=== PATIENT | male | born 1990 | race Caucasian/White ===

== ENCOUNTER 2019-12-24 09:35 | Emergency (ER) | payer OTHER, SELFPAY ==
--- NOTE | ~2019-12-24 | US_ITS ---
EXAMINATION: US scrotum doppler DATE: 12/24/2019 10:48 INDICATION: Testicular pain and urinary frequency TECHNIQUE: Testicular sonogram utilizing grayscale and Doppler COMPARISON: 01/31/2018 FINDINGS: The right testis measures 4.3 x 2.3 x 3.1 cm. The left testis measures 4.3 x 2.3 x 3.1 cm. There is normal vascular flow to both testes. The right epididymis is normal with normal vascular grant w. The left epididymis is normal with normal vascular flow. Small bilateral hydroceles are noted. IMPRESSION: 1. Small hydroceles. Reviewed, dictated and finalized at location [facility]. IMPRESSION: 1. Small hydroceles.
--- NOTE | ~2019-12-24 | CT_ITS ---
EXAMINATION: CT abdomen pelvis wo con DATE: 12/24/2019 11:47 INDICATION: Right flank pain, discomfort TECHNIQUE: Computed tomography (CT) of the abdomen and pelvis was performed without intravenous contr ast. Automated exposure control and iterative reconstruction technique were employed. Exam dose: 261 .45 mGy-cm total exam DLP. COMPARISON: 12/27/2018 CT abdomen pelvis FINDINGS: The lung bases are clear. Normal heart size. No pericardial or pleural effusion. The liver, gallbladder, bile ducts, spleen, pancreas, pancreatic duct and adrenal glands are unremark able. No urinary tract calculus or hydroureteronephrosis. No renal space occupying mass lesion. The urinary bladder, prostate gland and seminal vesicles are unremarkable. Normal appendix. No bowel obstruction, bowel wall thickening, pneumatosis or intraperitoneal free air . There are scattered diverticula of the sigmoid colon; no CT evidence of diverticulitis. Very small fat-containing umbilical hernia. Included skeletal structures are unremarkable. IMPRESSION: Diverticulosis of the sigmoid colon; no CT evidence of diverticulitis Reviewed, dictated and finalized at [facility]. Reviewed, dictated and finalized at location [facility]. IMPRESSION: Diverticulosis of the sigmoid colon; no CT evidence of diverticuli tis
--- NOTE | ~2019-12-24 | XR_ITS ---
EXAMINATION: XR abdomen/kub 1V INDICATION: Right flank pain TECHNIQUE: Supine views of the abdomen were obtained on 2 radiographs. COMPARISON: 09/02/2018 FINDINGS: The bowel gas pattern is normal. There are no dilated loops of bowel. No abnormal calcifica tions are identified. The visualized lung bases are clear. IMPRESSION: 1. No radiographic correlate for the patient's symptoms. Reviewed, dictated and finalized at location [facility].
[2019-12-24 09:40] VITALS: BP 133/98; PULSE 72; RESP 18; TEMP 36.1; O2SAT 100
--- NOTE | 2019-12-24 10:04 | ED.MALEGU ---
HPI - Male Genitourinary General Chief complaint: Urogenital-Male Stated complaint: rt flank pain, urinary symptoms Time Seen by Provider: 12/24/19 09:39 Source: patient Mode of arrival: ambulatory Limitations: no limitations History of Present Illness HPI Narrative: This patient is a 29 year old male with history of epididymitis who presents for evaluation of urinary frequency and right flank pain. He states starting 3 days ago he developed increased urinary frequency and testicular pain. He states his testicular pain is similar to when he had epididymitis 2 years ago. He reports his testicular pain has improved but starting yesterday he developed right flank pain. He denies associated nausea, vomiting, fever, chills, hematuria, dysuria or penile discharge. He has an appointment with Dr. Ferguson tomorrow. Severity scale (1-10): 5 Related Data Allergies Allergy/AdvReac Type Severity Reaction Status Date / Time No Known Allergies Allergy Unknown Verified 12/27/18 11:53 Review of Systems Review of Systems: All systems reviewed & are unremarkable except as noted in HPI and below Respiratory: Respiratory: Denies dyspnea Gastrointestinal: Gastrointestinal: Denies abdominal pain Genitourinary: Genitourinary: Denies hematuria, Reports genital pain, Reports flank pain, Reports testicular pain and Reports urinary frequency PMFSH Past Medical History Medical History (Updated 12/24/19 @ 12:23 by Olivia Carvajal MD) Epididymitis Surgical History Surgical History (Updated 12/24/19 @ 10:04 by Olivia Carvajal MD) No significant past surgical history Social History Social History (Updated 12/24/19 @ 10:05 by Olivia Carvajal MD) Smoking status: Never smoker Exam Const: General: cooperative, healthy appearing, well developed, alert, awake and Physically active Nutritional Appearance: average body habitus HENMT: Face and sinus: face symmetric Eyes: EOM: EOMs intact bilaterally Resp: Effort & Inspection: normal respiratory effort GI: GI Palp: Yes Soft to palpation, No Firmness to palpation present (GI), No Tenderness to palpation present (GI) and No No hepatosplenomegaly present : General: Yes no CVA tenderness Penis: Yes normal penis and Yes circumcised Meatus: meatus normal Scrotum: scrotum normal Testes: Testes normal Back/Spine/Pelvis: Back: no CVA tenderness Course Reevaluation(s) Reevaluation #1: I discussed wit patient that scrotal US and CT did not show any kidney stone or epididymitis. Date: 12/24/19 Time: 12:21 Vital Signs Vital signs: Vital Signs Temperature 97.0 F L 12/24/19 09:40 Pulse Rate 72 12/24/19 09:40 Respiratory Rate 18 12/24/19 09:40 Blood Pressure 133/98 H 12/24/19 09:40 Pulse Oximetry 100 12/24/19 09:40 Temperature 97.0 F L 12/24/19 09:40 Pulse Rate 81 12/24/19 12:33 Respiratory Rate 16 12/24/19 12:33 Blood Pressure 132/90 12/24/19 12:33 Pulse Oximetry 100 12/24/19 12:33 MDM - Male Genitourinary Lab Data Labs: Lab Results 12/24/19 Range/Units 10:04 Urine Color Yellow (Yellow) Urine Appearance Clear (Clear) Urine pH 6.0 (5.0-9.0) Ur Specific Crozier 1.017 (1.001-1.035) Urine Protein Negative (Negative) mg/dL Urine Glucose (UA) Negative (Negative) mg/dL Urine Ketones Negative (Negative) mg/dL Ur Blood (Man) 1+ H (Negative) Urine Nitrate Negative (Negative) Urine Bilirubin Negative (Negative) Urine Urobilinogen Negative (<2.0) mg/dL Leukocyte Esterase Rfl Negative (Negative) SERGIO/UL Urine RBC 3-5 H (0-2) /hpf Urine WBC 0-3 /hpf Urine Mucus Rare /lpf Imaging Data Radiologist's impression: ITS Impressions Scrotum Ultrasound 12/24/19 10:53 IMPRESSION: 1. Small hydroceles. Abdomen/Pelvis CT 12/24/19 11:53 IMPRESSION: Diverticulosis of the sigmoid colon; no CT evidence of diverticulitis Discharge Plan Discharge Clinica
[2019-12-24 10:16] LABS: Add Urine Microscopic? YES; Appearance Urine Clear (Clear); Bilirubin Urine Negative (Negative); Blood Urine 1+ (Negative); Color Urine Yellow (Yellow); Glucose Urine UA Negative (Negative); Ketones Urine Negative (Negative); Leukocyte Esterase Ur Negative LEU/UL (Negative); Mucus Urine Rare /lpf; Nitrate Urine Negative (Negative); Protein Urine Negative (Negative); Specific Grav Ur 1.017 (1.001-1.035); Urobilinogen Urine Negative mg/dL (<2.0); WBC Urine 0-3 /hpf
--- NOTE | 2019-12-24 10:21 | PC.NURSE ---
Patient to ultrasound at this time.
--- NOTE | 2019-12-24 11:10 | PC.NURSE ---
Oncoming RN introduced to patient and bedside report was given at same time.
[2019-12-24] MEDS: KETOROLAC (*BKC) 60 MG/2 ML VIAL IM (12:32)
[2019-12-24 12:33] VITALS: BP 132/90; PULSE 81; RESP 16; O2SAT 100
== END 2019-12-24 12:35 | disposition home or self-care (01) ==
PROVIDERS: Emergency Provider General Practice
DX: N50.812 Left testicular pain (principal); N50.811 Right testicular pain; N43.3 Hydrocele, unspecified; K57.30 Diverticulosis of large intestine without perforation or abscess without bleeding
CPT/HCPCS: 74018; 74176; 76870; 81001; 93976; 96372; 99284; J1885

== ENCOUNTER 2020-01-05 15:38 | Emergency (ER) | payer OTHER, SELFPAY ==
[2020-01-05 16:32] VITALS: BP 131/74; PULSE 82; RESP 18; TEMP 36.8; O2SAT 98
[2020-01-05 16:48] LABS: Basophils Percent Auto 0.5 % (0.2-1.2); Eosinophils Absolute Auto 0.1 K/mm3 (0-0.3); Eosinophils Percent Auto 0.9 % (0-4.4); Hematocrit 44.2 % (42.0-52.0); Hemoglobin 15.4 g/dL (14.0-18.0); Immature Granulocyte Absolute 0.03 K/mm3 (0.00-0.031); Immature Granulocyte Percent A 0.4 % (0-0.5); Lymphocytes Absolute Auto 2.15 K/mm3 (0.9-3.2); Lymphocytes Percent Auto 27.8 % (18.3-44.2); Mean Corpuscular HGB Conc 34.8 g/dl (32-36); Mean Corpuscular Hemoglobin 30.4 pg (26-34); Mean Corpuscular Volume 87.4 fl (80-100); Monocytes Absolute Auto 0.6 K/mm3 (0.1-0.6); Monocytes Percent Auto 7.3 % (2.6-8.5); Neutrophils Absolute Auto 4.9 K/mm3 (1.3-6.7); Neutrophils Percent Auto 63.1 % (45.5-73.1); Platelet Count Result 209 k/mm3 (150-375); Red Blood Count 5.06 M/mm3 (4.6-6.20); Red Cell Distribution Width 12.5 % (11.5-14.5); White Blood Count 7.7 K/mm3 (4.5-10.0)
[2020-01-05 16:59] LABS: Alanine Aminotransferase 28 U/L (4-50); Albumin Level 5.1 g/dL (3.5-5.1); Alkaline Phosphatase 66 U/L (38-126); Anion Gap 11 mmol/L (8-16); Aspartate Amino Transferase 24 U/L (17-59); Bilirubin,Total 0.5 mg/dL (0.2-1.3); Blood Urea Nitrogen 9 mg/dL (9-20); Calcium 9.6 mg/dL (8.4-10.2); Carbon Dioxide 26 mmol/L (22-30); Chloride 101 mmol/L (98-107); Estimated CRCL calculation 100 ml/min; Estimated Glomerular Filt Rate > 60; Glucose 100 mg/dL (75-110); Lipase 83 U/L (23-300); Potassium 3.8 mmol/L (3.4-5.0); Sodium 138 mmol/L (137-145)
--- NOTE | 2020-01-05 20:14 | ED.ABDPAIN ---
HPI - Abdominal Pain General Chief Complaint: Abdominal Pain Stated Complaint: abd pain Time Seen by Provider: 01/05/20 20:10 History of Present Illness HPI narrative: Pt c/o epigastric pain, 10/23, burning, non radiating, worse with food, feels bloated when he eats, started 3 days ago. Pt states he has a h/o reflux. Pt was seen here 2 weeks ago, had labs and ct scan done, were all normal. Denies n/v/d or fever. Related Data Allergies Allergy/AdvReac Type Severity Reaction Status Date / Time No Known Allergies Allergy Unknown Verified 01/05/20 20:19 Review of Systems Review of Systems: All systems reviewed & are unremarkable except as noted in HPI and below Constitutional: Constitutional: Denies body ache(s), Denies chills, Denies excessive sweating, Denies fatigue, Denies fever(s), Denies headache(s), Denies lethargy, Denies malaise, Denies weakness and Denies weight loss Eyes: Eyes: Denies blurry vision, Denies change in vision and Denies loss of vision ENT: Denies dizziness, Denies ear discharge, Denies headache(s), Denies lip swelling, Denies epistaxis, Denies nasal congestion, Denies neck pain, Denies throat swelling and Denies tongue swelling Cardiovascular: Cardiovascular: Denies chest pain, Denies chest pain at rest, Denies chest pain with activity, Denies diaphoresis, Denies rapid heart rate, Denies edema, Denies irregular heart rhythm, Denies lightheadedness, Denies palpitations, Denies dyspnea and Denies dyspnea on exertion Respiratory: Respiratory: Denies chest congestion, Denies cough, Denies hemoptysis, Denies dyspnea and Denies dyspnea on exertion Gastrointestinal: Gastrointestinal: Denies melena, Denies hematochezia, Denies diarrhea, Denies nausea, Denies vomiting and Denies hematemesis Musculoskeletal: Musculoskeletal: Denies abnormal gait, Denies deformity, Denies joint swelling, Denies limited range of motion, Denies neck pain and Denies numbness Neurologic: Denies Abnormal speech present, Denies abnormal gait, Denies confusion, Denies dizziness, Denies headache(s), Denies focal weakness, Denies loss of vision, Denies numbness, Denies Other visual disturbances, Denies Sensory deficit (Neuro) and Denies weakness Psychiatric: Psychiatric: Denies confusion, Denies depression, Denies auditory hallucinations, Denies homicidal ideation and Denies suicidal ideation Endocrine: Endocrine: Denies cold intolerance, Denies excessive sweating, Denies fatigue, Denies heat intolerance and Denies palpitations Hematologic/Lymphatic: Hematologic/Lymphatic: Denies easy bleeding and Denies easy bruising Allergic/Immunologic: Allergic/Immunologic: Denies lip swelling, Denies throat swelling and Denies tongue swelling PMFSH Past Medical History Medical History (Updated 01/05/20 @ 21:55 by Wai Bashir MD) Epididymitis Surgical History Surgical History (Updated 12/24/19 @ 10:04 by Olivia Carvajal MD) No significant past surgical history Social History Social History (Updated 12/24/19 @ 10:05 by Olivia Carvajal MD) Smoking status: Never smoker Gender identity (if verbalized by the patient): Male Exam Const: General: cooperative, healthy appearing, comfortable, no acute distress, well developed, alert and awake; No confusion Orientation/consciousness: oriented to person, oriented to place, oriented to time, patient oriented x3 and No confusion Limitations: no limitations HENMT: Head: normal to inspection, normocephalic and atraumatic Ears: hearing grossly normal bilaterally, TM normal on the right and TM normal on the left General nose exam: Normal external nose present, Normal nares present and No nasal discharge present Face and sinus: normal facial exam Mouth: Yes Normal oral and palatal mucosa present, Yes lip normal, Yes tongue normal and Yes oropharynx normal Throat: posterior oropharynx normal, tonsils normal and uvula midline Eyes: General: appearance normal, both eyes and all related structure
[2020-01-05] MEDS: BELLADONNA ALK/PHENOB ELIX 10 ML, MAG HYDROX/ALUMINUM HYD/SIMETH 30 ML, LIDOCAINE HCL 2... PO (20:32)
[2020-01-05] MEDS: FAMOTIDINE 20 MG TABLET PO (20:32)
[2020-01-05 22:07] VITALS: BP 119/73; PULSE 55; RESP 18; O2SAT 99
== END 2020-01-05 22:08 | disposition home or self-care (01) ==
PROVIDERS: Emergency Medicine; Emergency Provider Emergency Medicine; Referring Provider Family Medicine
DX: K29.00 Acute gastritis without bleeding (principal)
CPT/HCPCS: 36415; 80053; 83690; 85025; 99283; A9270

== ENCOUNTER 2020-12-07 17:58 | Emergency (ER) | payer OTHER, SELFPAY ==
--- NOTE | ~2020-12-07 | CT_ITS ---
EXAMINATION: CT abdomen pelvis w con DATE: 12/07/2020 22:46 INDICATION: Abdominal pain, hematochezia TECHNIQUE: Computed tomography (CT) of the abdomen and pelvis was performed with 100 cc Omnipaque 350 intravenous contrast. Automated exposure control and iterative reconstruction technique were employe d. Exam dose: 515.59 mGy-cm total exam DLP. COMPARISON: 12/24/[address] abdomen pelvis FINDINGS: The lung bases are clear. Normal heart size. No pericardial or pleural effusion. The liver, gallbladder, bile ducts, spleen, pancreas, pancreatic duct, and adrenal glands are unremar kable. 8.5 mm upper pole left renal cyst. No urinary tract calculus or hydroureteronephrosis. Normal caliber of the abdominal aorta. No intraperitoneal or retroperitoneal or pelvic mass lesion or ascites. The appendix measures up to 8.3 mm diameter compared to 7 mm on 01/03/2020. There is some thickening o f the wall of the mid appendix, but there is air within the distal appendiceal lumen. There is minima l periappendiceal fat stranding. Recommend clinical correlation for early appendicitis. There is some shoddy right lower quadrant lymph nodes, also present on 01/03/2020. There is mild epiploic appendagitis involving the distal descending colon. No bowel obstruction or intraperitoneal free air. Small fat-containing umbilical hernia. No suspicious osteolytic or osteoblastic lesions. IMPRESSION: 8.5 mm left renal cyst Equivocal findings of the appendix; recommend clinical correlation Chronic right lower quadrant shotty mesenteric lymph nodes, measuring up to 7.8 x 12.8 mm Reviewed, dictated and finalized at [facility]. Reviewed, dictated and finalized at location [facility].
[2020-12-07 18:04] VITALS: BP 165/81; PULSE 80; RESP 18; TEMP 37; O2SAT 98
[2020-12-07 19:09] LABS: Basophils Percent Auto 0.3 % (0.2-1.2); Eosinophils Percent Auto 0.4 % (0-4.4); Hemoglobin 15.1 g/dL (14.0-18.0); Immature Granulocyte Absolute 0.05 K/mm3 (0.00-0.031); Immature Granulocyte Percent A 0.5 % (0-0.5); Lymphocytes Absolute Auto 1.43 K/mm3 (0.9-3.2); Lymphocytes Percent Auto 13.4 % (18.3-44.2); Mean Corpuscular HGB Conc 33.6 g/dl (32-36); Mean Corpuscular Hemoglobin 30.6 pg (26-34); Mean Corpuscular Volume 91.1 fl (80-100); Mean Platelet Volume 9.9 fl (7.4-10.4); Monocytes Absolute Auto 0.6 K/mm3 (0.1-0.6); Monocytes Percent Auto 5.3 % (2.6-8.5); Neutrophils Absolute Auto 8.6 K/mm3 (1.3-6.7); Neutrophils Percent Auto 80.1 % (45.5-73.1); Platelet Count Result 205 k/mm3 (150-375); Red Blood Count 4.94 M/mm3 (4.6-6.20); Red Cell Distribution Width 12.6 % (11.5-14.5); White Blood Count 10.7 K/mm3 (4.5-10.0)
[2020-12-07 19:18] LABS: Add Urine Microscopic? NO; Appearance Urine Clear (Clear); Bilirubin Urine Negative (Negative); Blood Urine Negative (Negative); Color Urine Yellow (Yellow); Glucose Urine UA Negative (Negative); Ketones Urine Negative (Negative); Leukocyte Esterase Ur Negative LEU/UL (Negative); Nitrate Urine Negative (Negative); Protein Urine Negative (Negative); Urobilinogen Urine 0.2 mg/dL (<2.0); pH Urine 5.5 (5.0-9.0)
[2020-12-07 19:19] LABS: Alanine Aminotransferase 29 U/L (4-50); Albumin Level 5.2 g/dL (3.5-5.1); Alkaline Phosphatase 78 U/L (38-126); Anion Gap 10 mmol/L (8-16); Aspartate Amino Transferase 28 U/L (17-59); Bilirubin,Total 0.4 mg/dL (0.2-1.3); Blood Urea Nitrogen 12 mg/dL (9-20); Calcium 9.7 mg/dL (8.4-10.2); Carbon Dioxide 26 mmol/L (22-30); Chloride 104 mmol/L (98-107); Estimated CRCL calculation 111 ml/min; Estimated Glomerular Filt Rate > 60; Glucose 103 mg/dL (65-110); Lipase 95 U/L (23-300); Potassium 3.9 mmol/L (3.4-5.0); Sodium 140 mmol/L (137-145)
[2020-12-07 20:53] VITALS: BP 143/91; PULSE 75; RESP 16; O2SAT 99
--- NOTE | 2020-12-07 22:03 | ED.ABDPAIN ---
HPI - Abdominal Pain General Chief Complaint: Abdominal Pain Stated Complaint: Abd Pain,Blood in stool Time Seen by Provider: 12/07/20 21:05 Source: patient Mode of arrival: ambulatory Limitations: no limitations History of Present Illness HPI narrative: Patient is a 30-year-old male complaining of epigastric pain, dull, 3 out of 10, nonradiating that started today. Patient states that he noticed blood in his stools today especially when he wiped, had 2 episodes and none since. Patient denies any rectal pain or history of hemorrhoids. Patient denies any similar episodes in the past. Patient denies any chest pain, shortness of breath, nausea, vomiting, diarrhea, fever or chills. Related Data Allergies Allergy/AdvReac Type Severity Reaction Status Date / Time No Known Allergies Allergy Unknown Verified 12/07/20 20:49 Review of Systems Review of Systems: All systems reviewed & are unremarkable except as noted in HPI and below Constitutional: Constitutional: Denies body ache(s), Denies chills, Denies excessive sweating, Denies fatigue, Denies fever(s), Denies headache(s), Denies lethargy, Denies malaise, Denies weakness and Denies weight loss Eyes: Eyes: Denies blurry vision, Denies change in vision and Denies loss of vision ENT: Denies dizziness, Denies ear discharge, Denies headache(s), Denies lip swelling, Denies epistaxis, Denies nasal congestion, Denies neck pain, Denies throat swelling and Denies tongue swelling Cardiovascular: Cardiovascular: Denies chest pain, Denies chest pain at rest, Denies chest pain with activity, Denies diaphoresis, Denies rapid heart rate, Denies edema, Denies irregular heart rhythm, Denies lightheadedness, Denies palpitations, Denies dyspnea and Denies dyspnea on exertion Respiratory: Respiratory: Denies chest congestion, Denies cough, Denies hemoptysis, Denies dyspnea and Denies dyspnea on exertion Gastrointestinal: Gastrointestinal: Denies melena, Denies diarrhea, Denies nausea, Denies vomiting and Denies hematemesis Musculoskeletal: Musculoskeletal: Denies abnormal gait, Denies deformity, Denies joint swelling, Denies limited range of motion, Denies neck pain and Denies numbness Neurologic: Denies Abnormal speech present, Denies abnormal gait, Denies confusion, Denies dizziness, Denies headache(s), Denies focal weakness, Denies loss of vision, Denies numbness, Denies Other visual disturbances, Denies Sensory deficit (Neuro) and Denies weakness Psychiatric: Psychiatric: Denies confusion, Denies depression, Denies auditory hallucinations, Denies homicidal ideation and Denies suicidal ideation Endocrine: Endocrine: Denies cold intolerance, Denies excessive sweating, Denies fatigue, Denies heat intolerance and Denies palpitations Hematologic/Lymphatic: Hematologic/Lymphatic: Denies easy bleeding and Denies easy bruising Allergic/Immunologic: Allergic/Immunologic: Denies lip swelling, Denies throat swelling and Denies tongue swelling PMFSH Past Medical History Medical History (Updated 12/08/20 @ 00:14 by Wai Bashir MD) Epididymitis Surgical History Surgical History (Updated 12/24/19 @ 10:04 by Olivia Carvajal MD) No significant past surgical history Social History Social History (Updated 12/24/19 @ 10:05 by Olivia Carvajal MD) Smoking status: Never smoker Gender identity (if verbalized by the patient): Male Comments Past medical history: None Family history: Noncontributory Social history: Non-smoker no EtOH or drug use Exam Const: General: cooperative, healthy appearing, comfortable, no acute distress, well developed, alert and awake; No confusion Orientation/consciousness: oriented to person, oriented to place, oriented to time, patient oriented x3 and No confusion Limitations: no limitations HENMT: Head: normal to inspection, normocephalic and atraumatic Ears: hearing grossly normal bilaterally, TM normal on the right and TM normal on the left General nose exam:
[2020-12-07] MEDS: KETOROLAC 30 MG/ML VIAL (*BKC) IV PUSH (22:17)
[2020-12-07] MEDS: LACTATED RINGERS 1,000 ML 999 ML IV CONT (22:20)
[2020-12-07 22:21] VITALS: BP 145/82; PULSE 62; RESP 14; O2SAT 98
[2020-12-07 23:19] VITALS: BP 122/72; PULSE 85; RESP 14; O2SAT 98
[2020-12-08 00:43] VITALS: BP 127/85; PULSE 58; RESP 14; O2SAT 98
== END 2020-12-08 00:25 | disposition home or self-care (01) ==
PROVIDERS: Emergency Medicine; Emergency Provider Emergency Medicine
DX: K62.5 Hemorrhage of anus and rectum (principal); R10.13 Epigastric pain
CPT/HCPCS: 36415; 74177; 80053; 81003; 83690; 85025; 96361; 96374; 99284; J1885; J7120; Q9967

== ENCOUNTER 2021-07-13 15:57 | Emergency (ER) | payer OTHER, SELFPAY ==
[2021-07-13 15:59] VITALS: BP 119/96; PULSE 89; RESP 18; TEMP 37.1; O2SAT 100
--- NOTE | 2021-07-13 16:25 | ED.URI ---
HPI - URI/Sore Throat General Chief Complaint: Upper Respiratory Infection Stated Complaint: Cough, chills, shortness of breath Time Seen by Provider: 07/13/21 16:07 History of Present Illness HPI Narrative: Patient is a 30 year old male with no past medical history who presents for evaluation of nasal congestion, productive cough, subjective fevers. Was seen at urgent care 2 days ago for the same, returns today due to increased productive cough. +exposure to influenza A 5 days ago. Has been vaccinated against COVID, took home test yesterday that was negative. Related Data Home Medications Medication Instructions Recorded Confirmed sertraline [Zoloft] 50 mg PO DAILY 07/13/21 07/13/21 Allergies Allergy/AdvReac Type Severity Reaction Status Date / Time No Known Allergies Allergy Unknown Verified 07/13/21 16:06 Review of Systems Review of Systems: All systems reviewed & are unremarkable except as noted in HPI and below PMFSH Past Medical History Medical History (Updated 07/13/21 @ 18:14 by Su Benito PA-C) Epididymitis Surgical History Surgical History (Updated 12/24/19 @ 10:04 by Olivia Carvajal MD) No significant past surgical history Social History Social History (Updated 12/24/19 @ 10:05 by Olivia Carvajal MD) Smoking status: Never smoker Gender identity (if verbalized by the patient): Male Exam Const: General: no acute distress; No ill appearing Orientation/consciousness: patient oriented x3 HENMT: Head: normal to inspection General nose exam: Nasal discharge present Face and sinus: no sinus tenderness Other: Mild erythema noted to posterior oropharynx, but no exudates or tonsillar swelling. Neck: Neck: no lymphadenopathy and no meningeal signs Resp: Effort & Inspection: normal respiratory effort and not labored Auscultation: clear to auscultation bilaterally, no crackles, no rales, no rhonchi, no wheezes and lung sounds not diminished Cardio: Rate: regular rate Rhythm: regular rhythm Heart sounds: no murmurs GI: GI Palp: Yes Soft to palpation, No Tenderness to palpation present (GI) and No Rebound tenderness present Neuro: General: patient oriented x3 and moves all extremities Extrem: General: normal to inspection and no edema Psych: Appearance: grossly normal Mental Status: mental status grossly normal Affect: normal affect Course Vital Signs Vital signs: Vital Signs Temperature 98.7 F 07/13/21 15:59 Pulse Rate 89 07/13/21 15:59 Respiratory Rate 18 07/13/21 15:59 Blood Pressure 119/96 H 07/13/21 15:59 Pulse Oximetry 100 07/13/21 15:59 Temperature 98.7 F 07/13/21 15:59 Pulse Rate 89 07/13/21 15:59 Respiratory Rate 18 07/13/21 15:59 Blood Pressure 119/96 H 07/13/21 15:59 Pulse Oximetry 100 07/13/21 15:59 MDM - URI/Sore Throat MDM Narrative Medical decision making narrative: Healthy 30 year old male here for evaluation of subjective fevers, cough, sore throat, and runny nose. Patient had exposure to influenza A over the weekend. Patient appears clinically well, has normal vital signs with clear lungs to auscultation. Do not feel that lab studies or imaging is indicated at this time. Centor score 0. Will swab for flu, covid and have patient follow up with primary care doctor if not better. Encouraged fluids and rest. Influenza A positive- will send for script for Sudafed and encourage fluids and rest. Return precautions discussed. Medical Records Attestation: I reviewed the patient's medical records. Lab Data Labs: Lab Results 07/13/21 Range/Units 17:25 Influenza A (RT-PCR) Positive (Negative) Influenza B (RT-PCR) Negative (Negative) SARS-CoV-2 RNA (RT-PCR) Negative Discharge Plan Discharge Clinical Impression: Influenza Patient Disposition: Home, Self-Care Condition: Stable Instructions: Antibiotic Form, Influenza (ED) Additional Instructions: You were diagnosed with the flu tod
[2021-07-13 18:07] LABS: Influenza A QL RT-PCR Positive (Negative); Influenza B QL RT-PCR Negative (Negative); SARS-CoV-2 RNA PCR Negative
[2021-07-13] MEDS: IBUPROFEN 400 MG TABLET 800 MG PO (18:17)
== END 2021-07-13 18:27 | disposition home or self-care (01) ==
PROVIDERS: Physician Assistant; Emergency Provider Emergency Medicine; PCP Nurse Practitioner Family
DX: J11.1 Influenza due to unidentified influenza virus with other respiratory manifestations (principal)
CPT/HCPCS: 87502; 99283; A9270; C9803; U0003; U0005

== ENCOUNTER 2022-05-16 11:12 | Emergency (ER) | payer OTHER, SELFPAY ==
--- NOTE | ~2022-05-16 | US_ITS ---
EXAMINATION: US scrotum doppler DATE: 05/16/2022 12:07 INDICATION: Left scrotal pain. TECHNIQUE: Grayscale and Doppler ultrasound images of the testes were obtained. COMPARISON: Ultrasound 12/25/2019 FINDINGS: The right testis measures 4.7 x 2.5 x 3.3 cm. The left testis measures 4.3 x 2.5 x 3.5 cm. There is normal vascular flow to both testes. The right epididymis is normal with normal vascular grant w. The left epididymis is normal with normal vascular flow. There is no varicocele or hydrocele. IMPRESSION: 1. Normal testes. Reviewed, dictated and finalized at location A. EN MAKING TECHNICIAN IMPRESSION: 1. Normal testes.
--- NOTE | ~2022-05-16 | CT_ITS ---
EXAMINATION: CT abdomen pelvis w con DATE: 05/16/2022 14:39 INDICATION: Left inguinal pain. TECHNIQUE: Computed tomography (CT) of the abdomen and pelvis was performed with 100 mL Omnipaque 350 intravenous contrast. Automated exposure control and iterative reconstruction technique were employe d. The dose-length product was 377.62 mGy-cm. COMPARISON: CT abdomen and pelvis 12/07/2020 FINDINGS: The visualized portions of the lung bases are clear without pneumonia or pleural effusion. The heart size is normal. No pericardial effusion. The liver, gallbladder, spleen, pancreas, adrenal glands, and right kidney are normal. There is a 10 mm cyst in left kidney. There are no dilated loops of bowel. The appendix measures 10 mm in diameter without change. There are no pathologically enlarg ed lymph nodes. There is no free intraperitoneal fluid. There is mild thoracolumbar spondylosis. Ther e is mild chronic anterior wedging of T12 vertebral body. IMPRESSION: 1. No etiology for left inguinal pain. Reviewed, dictated and finalized at location A. ACT LENS FLASHING PUNCHER
[2022-05-16 11:16] VITALS: BP 143/71; PULSE 92; RESP 16; TEMP 37.1; O2SAT 100
[2022-05-16 12:06] LABS: Appearance Urine Clear (Clear); Bilirubin Urine Negative (Negative); Blood Urine Negative (Negative); Color Urine Yellow (Yellow); Glucose Urine UA Negative (Negative); Ketones Urine Negative (Negative); Leukocyte Esterase Ur Negative LEU/UL (Negative); Nitrate Urine Negative (Negative); Protein Urine Negative (Negative); Specific Grav Ur 1.015 (1.001-1.035); Urobilinogen Urine 0.2 mg/dL (<2.0)
[2022-05-16 12:21] LABS: Add Urine Microscopic? NO
--- NOTE | 2022-05-16 12:23 | ED.MALEGU ---
HPI - Male Genitourinary General Chief complaint: Urogenital-Male Stated complaint: back pain, groin pain Time Seen by Provider: 05/16/22 11:28 History of Present Illness HPI Narrative: Patient is a 31-year-old male with a history of epididymitis, prostatitis, previous UTIs here for evaluation of pain in his left inguinal region for the past several days. Patient states the pain is described as a dull ache, and he actually feels a mass in that area. Has not attempted any medicine for his pain. No dysuria, urgency, frequency, fevers, chills, nausea or vomiting. He had 1 day of right flank pain that has since eased up. Related Data Home Medications Medication Instructions Recorded Confirmed sertraline 50 mg tablet (Zoloft) 50 mg PO DAILY 07/13/21 07/13/21 Allergies Allergy/AdvReac Type Severity Reaction Status Date / Time No Known Allergies Allergy Unknown Verified 07/13/21 16:06 Review of Systems Review of Systems: Gen.: Denies fevers or chills Eyes: Denies eye pain or visual change ENT: Denies congestion Respiratory: Denies shortness of breath or cough CV: Denies chest pain or palpitations GI: Denies abdominal pain nausea, emesis or diarrhea : reports pain in left inguinal region. Denies burning, urgency, frequency or hematuria Musculoskeletal: Denies back pain or muscle pain Neuro: Denies numbness, tingling, weakness or focal weakness Skin: Denies rash Except as documented, all other systems reviewed and negative PMFSH Past Medical History Medical History Epididymitis Surgical History Surgical History No significant past surgical history Social History Social History (Updated 12/24/19 @ 10:05 by Olivia Carvajal MD) Smoking status: Never smoker Gender identity (if verbalized by the patient): Male Exam Narrative: APPEARANCE: Well appearing, no pain in distress, well-nourished. Head: Normocephalic and atraumatic. EYES: PERRLA/EOMI, conjunctivae clear NOSE: No nasal drainage EARS: External ear normal in appearance THROAT: Oropharynx is clear. Mucous membranes are moist. NECK: Supple. No adenopathy, no masses. RESPIRATORY: Airway patent, respirations nonlabored. Clear to auscultation bilaterally, no rales, rhonchi, wheezing. CARDIOVASCULAR: Regular rate and rhythm without murmurs, rubs, or gallops. ABDOMINAL: No abnormalities palpated in the patient's area of pain. Normoactive bowel sounds. Soft, nontender, nondistended. No rebound tenderness or guarding. : No pain with rectal exam. Testicles are normal in appearance. No rashes noted. MUSCULOSKELETAL: Extremities are warm and well-perfused. Moves all extremities well. No edema. NEURO: Normal speech. No focal neurologic deficits. SKIN: Skin is warm and dry. No rashes. PSYCHIATRIC: Normal affect/mood. Course Vital Signs Vital signs: Vital Signs Temperature 98.8 F 05/16/22 11:16 Pulse Rate 92 05/16/22 11:16 Respiratory Rate 16 05/16/22 11:16 Blood Pressure 143/71 H 05/16/22 11:16 Pulse Oximetry 100 05/16/22 11:16 Oxygen Delivery Room Air 05/16/22 11:16 Temperature 98.8 F 05/16/22 11:16 Pulse Rate 92 05/16/22 11:16 Respiratory Rate 16 05/16/22 11:16 Blood Pressure 143/71 H 05/16/22 11:16 Pulse Oximetry 100 05/16/22 11:16 Oxygen Delivery Room Air 05/16/22 11:16 MDM - Male Genitourinary MDM Narrative Medical decision making narrative: Patient is a 31-year-old male here for evaluation of pain in his left inguinal region and an episode of right flank pain yesterday. Patient is nontoxic in appearance and has normal vital signs. There is no hernia or mass palpated on exam. Testicles are normal in appearance, no pain with rectal exam to suggest prostatitis. His urinalysis and basic labs are unremarkable. Scrotal ultrasound obtained in triage is negative. CT abdomen pelv
[2022-05-16 13:27] LABS: Basophils Absolute Auto 0.1 K/mm3 (0.0-0.1); Basophils Percent Auto 0.7 % (0.2-1.2); Eosinophils Absolute Auto 0.1 K/mm3 (0-0.3); Eosinophils Percent Auto 1.2 % (0-4.4); Hematocrit 44.8 % (42.0-52.0); Hemoglobin 15.3 g/dL (14.0-18.0); Immature Granulocyte Absolute 0.02 K/mm3 (0.00-0.031); Immature Granulocyte Percent A 0.3 % (0-0.5); Lymphocytes Absolute Auto 1.58 K/mm3 (0.9-3.2); Lymphocytes Percent Auto 23.2 % (18.3-44.2); Mean Corpuscular HGB Conc 34.2 g/dl (32-36); Mean Corpuscular Hemoglobin 30.5 pg (26-34); Mean Corpuscular Volume 89.2 fl (80-100); Mean Platelet Volume 9.6 fl (7.4-10.4); Monocytes Absolute Auto 0.5 K/mm3 (0.1-0.6); Monocytes Percent Auto 7.5 % (2.6-8.5); Neutrophils Absolute Auto 4.6 K/mm3 (1.3-6.7); Neutrophils Percent Auto 67.1 % (45.5-73.1); Platelet Count Result 187 k/mm3 (150-375); Red Blood Count 5.02 M/mm3 (4.6-6.20); White Blood Count 6.8 K/mm3 (4.5-10.0)
[2022-05-16 13:40] LABS: Alanine Aminotransferase 21 U/L (6-50); Albumin Level 4.7 g/dL (3.5-5.1); Alkaline Phosphatase 57 U/L (38-126); Anion Gap 7 mmol/L (8-16); Aspartate Amino Transferase 23 U/L (17-59); Bilirubin,Total 0.4 mg/dL (0.2-1.3); Blood Urea Nitrogen 11 mg/dL (9-20); Calcium 9.5 mg/dL (8.4-10.2); Carbon Dioxide 30 mmol/L (22-30); Chloride 101 mmol/L (98-107); Estimated CRCL calculation 124 ml/min; Estimated Glomerular Filt Rate > 60; Glucose 97 mg/dL (65-110); Potassium 4.6 mmol/L (3.4-5.0); Sodium 138 mmol/L (137-145)
== END 2022-05-16 15:29 | disposition home or self-care (01) ==
PROVIDERS: Emergency Provider Physician Assistant; PCP Nurse Practitioner Family
DX: R10.32 Left lower quadrant pain (principal); Z87.440 Personal history of urinary (tract) infections
CPT/HCPCS: 36415; 74177; 76870; 80053; 81003; 85025; 87491; 87591; 93976; 99284; Q9967

== ENCOUNTER 2023-06-25 05:59 | Emergency (ER) | payer OTHER, SELFPAY ==
[2023-06-25] VITALS (15 sets, daily range): BP systolic 116–137; BP diastolic 63–70; PULSE 60–65; RESP 14–15; TEMP 36; O2SAT 95–100
[2023-06-25 06:50] LABS: Influenza A QL RT-PCR Negative (Negative); Influenza B QL RT-PCR Positive (Negative); RSV RNA, RT-PCR Negative (Negative); SARS-CoV-2 RNA PCR Negative (Negative)
[2023-06-25] MEDS: KETOROLAC 30 MG/ML VIAL (*BKC) IV PUSH (07:50)
[2023-06-25] MEDS: SODIUM CHLORIDE 0.9% IV 1,000 ML 999 ML IV CONT (07:50)
--- NOTE | 2023-06-25 09:01 | ED.GENADULT ---
HPI - General Adult General Chief complaint: Upper Respiratory Infection Stated complaint: congestion, fatigue, cough, fever Time Seen by Provider: 06/25/23 06:59 History of Present Illness HPI narrative: Patient is a 32-year-old male who presents ER with a one-week illness. Reports he has been having sinus congestion with fatigue and body aches. He has had cough and fevers well. No known sick contacts. No chest pain or chest pressure. No urinary symptoms or abdominal discomfort. Denies alleviating factors. Related Data Home Medications Medication Instructions Recorded Confirmed sertraline 50 mg tablet (Zoloft) 50 mg PO DAILY 07/13/21 07/13/21 Allergies Allergy/AdvReac Type Severity Reaction Status Date / Time No Known Allergies Allergy Unknown Verified 07/13/21 16:06 Review of Systems Constitutional: Constitutional: Reports fatigue, Reports fever(s) and Reports weakness ENT: Reports nasal congestion and Denies sore throat Respiratory: Respiratory: Reports cough and Denies dyspnea Gastrointestinal: Gastrointestinal: Reports no additional gastrointestinal complaints PMFSH Past Medical History Medical History Epididymitis Surgical History Surgical History No significant past surgical history Social History Social History (Updated 12/24/19 @ 10:05 by Olivia Carvajal MD) Smoking status: Never smoker Gender identity (if verbalized by the patient): Male Exam Narrative: GENERAL: Well-appearing, well-nourished, and in no acute distress. HEAD: Normocephalic, atraumatic. EYES: PERRL and EOMI. CHEST: Clear to auscultation. No respiratory distress. HEART: Regular rate and rhythm. Normal peripheral pulses. ABDOMEN: Soft, nontender, nondistended. EXTREMITIES: Normal range of motion. No edema. SKIN: Warm, dry, no rash. NEURO: Alert and oriented x3. PSYCH: Normal mood and affect. Course Course Emergency Course: Patient informed of lab results. He was treated with Toradol and IV fluid and feels improved. Discharge home. Vital Signs Vital signs: Vital Signs Temperature 96.8 F L 06/25/23 06:05 Pulse Rate 62 06/25/23 06:05 Respiratory Rate 14 06/25/23 06:05 Blood Pressure 130/70 06/25/23 06:05 Pulse Oximetry 100 06/25/23 06:05 Oxygen Delivery Room Air 06/25/23 06:05 Temperature 96.8 F L 06/25/23 06:05 Pulse Rate 60 06/25/23 06:51 Respiratory Rate 15 06/25/23 06:51 Blood Pressure 118/66 06/25/23 07:01 Pulse Oximetry 99 06/25/23 07:30 Oxygen Delivery Room Air 06/25/23 06:15 Medical Decision Making Vital Signs Vital Signs: Vital Signs Temperature 96.8 F L 06/25/23 06:05 Pulse Rate 62 06/25/23 06:05 Respiratory Rate 14 06/25/23 06:05 Blood Pressure 130/70 06/25/23 06:05 Pulse Oximetry 100 06/25/23 06:05 Oxygen Delivery Room Air 06/25/23 06:05 Temperature 96.8 F L 06/25/23 06:05 Pulse Rate 60 06/25/23 06:51 Respiratory Rate 15 06/25/23 06:51 Blood Pressure 118/66 06/25/23 07:01 Pulse Oximetry 99 06/25/23 07:30 Oxygen Delivery Room Air 06/25/23 06:15 Lab Data Labs: Lab Results 06/25/23 Range/Units 06:04 Influenza A (RT-PCR) Negative (Negative) Influenza B (RT-PCR) Positive A (Negative) RSV (RT-PCR) Negative (Negative) SARS-CoV-2 RNA (RT-PCR) Negative (Negative) Discharge Plan Discharge Clinical Impression: Influenza B Patient Disposition: Home, Self-Care Condition: Stable Instructions: Influenza (ED) Additional Instructions: As discussed you have a viral illness. Unfortunately there are no specific medications we can give you to make the illness end faster. Antibiotics do not work for viral illnesses. However, you can take Acetaminophen or Ibuprofen to help with fevers and pain. Stay well hydrated and rested
== END 2023-06-25 09:18 | disposition home or self-care (01) ==
PROVIDERS: Emergency Medicine; Emergency Provider Emergency Medicine; PCP Nurse Practitioner Family
DX: J10.1 Influenza due to other identified influenza virus with other respiratory manifestations (principal); Z20.822 Contact with and (suspected) exposure to COVID-19
CPT/HCPCS: 87637; 96361; 96374; 99284; J1885; J7030

== ENCOUNTER 2023-07-08 08:49 | Emergency (ER) | payer OTHER, SELFPAY ==
--- NOTE | ~2023-07-08 | XR_ITS ---
EXAMINATION: XR chest 2V 07/08/2023 10:25 INDICATION: Bodyaches and fatigue PROCEDURE: 2 view chest COMPARISON: 04/16/2016 FINDINGS: The lungs are clear. The cardiomediastinal silhouette is within normal limits. There are no pleural effusions. There is no pneumothorax suspected. IMPRESSION: 1: NO ACUTE CARDIOPULMONARY DISEASE. Reviewed, dictated and finalized at location A.
[2023-07-08 08:53] VITALS: BP 132/81; PULSE 87; RESP 17; TEMP 37.1; O2SAT 100
[2023-07-08 09:26] VITALS: O2SAT 100
--- NOTE | 2023-07-08 09:30 | ED.URI ---
HPI - URI/Sore Throat General Chief Complaint: Upper Respiratory Infection Stated Complaint: bodyaches, chills Time Seen by Provider: 07/08/23 09:04 History of Present Illness HPI Narrative: 32-year-old male presents to the emergency department for body aches, chills and joint stiffness that started yesterday. Patient states a couple weeks ago he was diagnosed with influenza B. Patient states he got over the illness without difficulty or issues. Last night, the patient states he developed body aches and chills like he was having the flu again. He woke up this morning with reported neck stiffness, shoulder stiffness, knee stiffness, wrist, toe and finger stiffness. He denies extremity weakness but reports pain with range of motion of all of his joints. States he has never had anything like this before. He denies fever, cough, congestion, chest pain or shortness of breath, abdominal pain, nausea or vomiting, diarrhea, dysuria or hematuria. states he had a headache last night but that has since resolved. Denies vision changes, jaw claudication. Denies penile discharge, concern for STDs, recent tick bite. Related Data Home Medications Medication Instructions Recorded Confirmed sertraline 50 mg tablet (Zoloft) 50 mg PO DAILY 07/13/21 07/13/21 Allergies Allergy/AdvReac Type Severity Reaction Status Date / Time No Known Allergies Allergy Unknown Verified 07/08/23 08:56 Review of Systems Review of Systems: CONSTITUTIONAL: see HPI EYES: Denies visual changes, redness, or discharge. ENT: Denies rhinorrhea, congestion, sore throat, or otalgia. CARDIOVASCULAR: Denies chest pain, palpitations, or edema. RESPIRATORY: Denies cough or dyspnea. GASTROINTESTINAL: Denies abdominal pain, nausea, vomiting, or diarrhea. GENITOURINARY: Denies dysuria or hematuria. SKIN: Denies rash or itching. MUSCULOSKELETAL: See HPI NEUROLOGIC: Denies headache, numbness, or weakness. PSYCHIATRIC: Denies anxiety or depression. [facility] Past Medical History Medical History Epididymitis Surgical History Surgical History No significant past surgical history Social History Social History Smoking status: Never smoker Gender identity (if verbalized by the patient): Male Exam Narrative: GENERAL: Well-appearing, well-nourished, and in no acute distress. nontoxic HEAD: Normocephalic, atraumatic. EYES: PERRLA and EOMI. ENT: Nares clear, no rhinorrhea or epistaxis. Mucous membranes moist. No tenderness to temporal arteries. No jaw claudication. NECK: Supple. CHEST: Clear to auscultation. No respiratory distress. HEART: Regular rate and rhythm. No murmur heard. Normal peripheral pulses. ABDOMEN: Soft, nontender, nondistended, normal active bowel sounds. EXTREMITIES: Pain with movement of all joints, however full active and passive range of motion. Radial and DP pulses 2+. No warmth, edema or erythema overlying joint spaces. SKIN: Warm, dry, no rash. NEURO: No focal deficits. Alert and oriented x3 Course Vital Signs Vital signs: Vital Signs Temperature 98.8 F 07/08/23 08:53 Pulse Rate 87 07/08/23 08:53 Respiratory Rate 17 07/08/23 08:53 Blood Pressure 132/81 07/08/23 08:53 Pulse Oximetry 100 07/08/23 08:53 Oxygen Delivery Room Air 07/08/23 08:53 Temperature 98.8 F 07/08/23 08:53 Pulse Rate 87 07/08/23 08:53 Respiratory Rate 17 07/08/23 08:53 Blood Pressure 132/81 07/08/23 08:53 Pulse Oximetry 100 07/08/23 09:26 Oxygen Delivery Room Air 07/08/23 09:26 MDM - URI/Sore Throat MDM Narrative Medical decision making narrative: 32-year-old male presents to the emergency department for joint pain and stiffness that started this morning associated chills. He had a recent diagnosis of influenza B on 06/25/2023. See
[2023-07-08] MEDS: SODIUM CHLORIDE 0.9% IV 1,000 ML 999 ML IV CONT (09:42)
[2023-07-08] MEDS: ACETAMINOPHEN 500 MG TABLET 1000 MG PO (09:42)
[2023-07-08 09:52] LABS: Basophils Percent Auto 0.3 % (0.2-1.2); Eosinophils Absolute Auto 0.1 K/mm3 (0-0.3); Eosinophils Percent Auto 0.7 % (0-4.4); Hematocrit 43.5 % (42.0-52.0); Hemoglobin 14.6 g/dL (14.0-18.0); Immature Granulocyte Absolute 0.05 K/mm3 (0.00-0.031); Immature Granulocyte Percent A 0.3 % (0-0.5); Lymphocytes Absolute Auto 0.99 K/mm3 (0.9-3.2); Lymphocytes Percent Auto 6.7 % (18.3-44.2); Mean Corpuscular HGB Conc 33.6 g/dl (32-36); Mean Corpuscular Hemoglobin 30.5 pg (26-34); Mean Platelet Volume 9.6 fl (7.4-10.4); Monocytes Absolute Auto 1.1 K/mm3 (0.1-0.6); Monocytes Percent Auto 7.2 % (2.6-8.5); Neutrophils Absolute Auto 12.6 K/mm3 (1.3-6.7); Neutrophils Percent Auto 84.8 % (45.5-73.1); Platelet Count Result 215 k/mm3 (150-375); Red Blood Count 4.78 M/mm3 (4.6-6.20); White Blood Count 14.9 K/mm3 (4.5-10.0)
[2023-07-08 10:00] LABS: Bacteria Urine None Seen /hpf; Non Pathogenic Casts 0-2; RBC Urine 0-2 /hpf (0-2); Squamous Epithelial Cell Urine None Seen /hpf (Few); WBC Urine 0-5 /hpf (0-3)
[2023-07-08 10:03] LABS: Alanine Aminotransferase 32 U/L (6-50); Albumin Level 4.5 g/dL (3.5-5.1); Alkaline Phosphatase 71 U/L (38-126); Anion Gap 6 mmol/L (8-16); Aspartate Amino Transferase 25 U/L (17-59); Bilirubin,Total 0.9 mg/dL (0.2-1.3); Blood Urea Nitrogen 10 mg/dL (9-20); CRP 6.8 mg/dL (<1.0); Calcium 9.5 mg/dL (8.4-10.2); Carbon Dioxide 30 mmol/L (22-30); Chloride 103 mmol/L (98-107); Creatine Kinase 54 U/L (55-170); Estimated CRCL calculation 98 ml/min; Estimated Glomerular Filt Rate > 60; Glucose 101 mg/dL (65-110); Sodium 139 mmol/L (137-145)
[2023-07-08 10:10] LABS: Appearance Urine Clear (Clear); Blood Urine Negative (Negative); Color Urine Yellow (Yellow); Glucose Urine UA Negative (Negative); Ketones Urine Negative (Negative); Protein Urine Negative (Negative); Specific Grav Ur 1.015 (1.001-1.035)
[2023-07-08 10:11] LABS: Bilirubin Urine Negative (Negative); Leukocyte Esterase Ur Trace LEU/UL (Negative); Nitrate Urine Negative (Negative); Urobilinogen Urine 0.2 mg/dL (<2.0)
[2023-07-08 10:13] LABS: Add Urine Microscopic? YES
[2023-07-08 10:28] LABS: Influenza A QL RT-PCR Negative (Negative); Influenza B QL RT-PCR Negative (Negative); RSV RNA, RT-PCR Negative (Negative); SARS-CoV-2 RNA PCR Negative (Negative)
[2023-07-08 10:30] LABS: Erythrocyte Sedimentation Rate 13 mm/hr (0-20)
[2023-07-08] MEDS: predniSONE 20 MG TABLET 15 MG PO (11:10)
[2023-07-08 13:02] LABS: Chlamydia trachomatis NOT DETECTED (NOT DETECTE); Neisseria gonorrhoeae PCR NOT DETECTED (NOT DETECTE)
== END 2023-07-08 12:37 | disposition home or self-care (01) ==
PROVIDERS: Emergency Provider Physician Assistant; PCP Nurse Practitioner Family
DX: M25.562 Pain in left knee (principal); M25.561 Pain in right knee; Z20.822 Contact with and (suspected) exposure to COVID-19
CPT/HCPCS: 36415; 71046; 80053; 81001; 82550; 85025; 85652; 86140; 87491; 87591; 87637; 96361; 96365; 99284; A9270; J0696; J7030; J7512

== ENCOUNTER 2024-03-22 19:13 | Emergency (ER) | payer OTHER, SELFPAY ==
--- NOTE | ~2024-03-22 | XR_ITS ---
EXAMINATION: XR chest 1V portable DATE: 03/23/2024 01:29 INDICATION: Cough and shortness of breath. TECHNIQUE: A single frontal view of the chest was obtained. COMPARISON: Chest 2 views 07/08/2023, CT abdomen and pelvis 05/16/2022 FINDINGS: There is no pneumonia, pleural effusion, or pneumothorax. The heart size is normal. IMPRESSION: 1. No acute cardiopulmonary disease. Reviewed, dictated and finalized at location A. NSED MENTAL HEALTH COUNSELOR
[2024-03-22 19:24] VITALS: BP 122/77; PULSE 91; RESP 19; TEMP 37.1; O2SAT 100
[2024-03-22 20:09] LABS: Influenza A QL RT-PCR Negative (Negative); Influenza B QL RT-PCR Negative (Negative); RSV RNA, RT-PCR Negative (Negative); SARS-CoV-2 RNA PCR Negative (Negative)
--- NOTE | 2024-03-23 00:09 | ED_ITS ---
HPI - URI/Sore Throat General Chief Complaint: Upper Respiratory Infection Stated Complaint: upper respiratory Time Seen by Provider: 03/22/24 23:15 History of Present Illness HPI Narrative: Patient is a 33-year-old male who presents to the ER with complaints of an upper respiratory infection that started on . He reports it started with a sore throat and cough, but has now progressed to fatigue, body aches, chills, mild shortness of breath, and coughing spells that caused him to become diaphoretic. Patient endorses sternal chest pain with his coughing. He denies any medical history and his primary care provider. Patient denies any recent sick contacts. He reports he has been using Robitussin, Tylenol and ibuprofen at home to control his symptoms. Patient denies abdominal pain, lower extremity swelling, urinary symptoms. Related Data Home Medications Medication Instructions Recorded Confirmed sertraline 50 mg tablet (Zoloft) 50 mg PO DAILY 07/13/21 07/13/21 Allergies Allergy/AdvReac Type Severity Reaction Status Date / Time No Known Allergies Allergy Unknown Verified 07/08/23 08:56 Review of Systems Review of Systems: All systems reviewed & are unremarkable except as noted in HPI and below PMFSH Past Medical History Medical History Epididymitis Surgical History Surgical History No significant past surgical history Social History Social History Smoking status: Never smoker Gender identity (if verbalized by the patient): Male Exam Narrative: GENERAL: Well appearing, well-nourished, non-toxic, in no acute distress. HEAD: Normocephalic, atraumatic. NECK: Supple. No adenopathy, no masses. RESPIRATORY: Airway patent, respirations nonlabored. Clear to auscultation bilaterally, no rales, rhonchi, wheezing. CARDIOVASCULAR: Regular rate and rhythm without murmurs, rubs, or gallops. Peripheral pulses 2+ and equal bilaterally. ABDOMINAL: Soft, nontender, nondistended, no hepatosplenomegaly. Normoactive BS. MUSCULOSKELETAL: Moves all extremities. Strength/ROM intact without gross deformities. SKIN: Warm, dry, normal color. No rashes. NEURO: A&O X3. Speech clear. Cranial nerves II-XII grossly intact. Steady gait. No ataxic movements. PSYCHIATRIC: Appropriate mood and affect. Normal interaction. Course Vital Signs Vital signs: Vital Signs Temperature 37.1 C 03/22/24 19:24 Pulse Rate 91 03/22/24 19:24 Respiratory Rate 19 03/22/24 19:24 Blood Pressure 122/77 03/22/24 19:24 Pulse Oximetry 100 03/22/24 19:24 Oxygen Delivery Room Air 03/22/24 19:24 Temperature 38.3 C H 03/23/24 00:33 Pulse Rate 92 03/23/24 00:33 Respiratory Rate 12 03/23/24 00:33 Blood Pressure 132/70 03/23/24 00:33 Pulse Oximetry 98 03/23/24 00:33 Oxygen Delivery Room Air 03/23/24 00:33 MDM - URI/Sore Throat MDM Narrative Medical decision making narrative: Patient is a 33-year-old male who presents to the ER with complaints of an upper respiratory infection that started on . He reports it started with a sore throat and cough, but has now progressed to fatigue, body aches, chills, mild shortness of breath, and coughing spells that caused him to become diaphoretic. Patient endorses sternal chest pain with his coughing. He denies any medical history and his primary care provider. Patient denies any re cent sick contacts. He reports he has been using Robitussin, Tylenol and ibuprofen at home to control his symptoms. Patient denies abdominal pain, lower extremity swelling, urinary symptoms. Labs Ordered: COVID/flu/RSV swab Imaging Ordered: Chest x-ray Results: Chest x-ray positive for pneumonia. Diagnosis: Upper respiratory infection, pneumonia Patient Education/Shared MDM: Results shared with patient. He reports improvement after Decadron, Tylenol, Toradol administration, but reports most of his improvement occurred after he was given a DuoNeb. Plan will be to discharge patient on Doxycycline, a Medrol Dosepak, albuterol inhaler, cough medication. Disposition/Plan: Patient is in agreement with current treatment plan. All questions answered. Vital signs stable at time of discharge. Differential Diagnosis Differential diagnosis: Likely upper respiratory infection, sinusitis, viral infection, bronchitis, influenza and pharyngitis Lab Data Attestation: I reviewed the patient's lab results. Labs: Lab Results 03/22/24 Range/Units 19:28 Influenza A (RT-PCR) Negative (Negative) Influenza B (RT-PCR) Negative (Negative) RSV (RT-PCR) Negative (Negative) SARS-CoV-2 RNA (RT-PCR) Negative (Negative) Imaging Data Attestation: I personally reviewed and interpreted this imaging study as follows: My impression: Patient's chest x-ray indicates pneumonia. Discharge Plan Discharge Clinical Impression: Upper respiratory infection, Bronchitis, Pneumonia Patient Disposition: Home, Self-Care Condition: Stable Instructions: Antibiotic Form, Acute Bronchitis (ED), Bacterial Pneumonia (ED) Additional Instructions: Please return to the ER with an worsening symptoms. Follow-up with primary care provider in the next 2-3 days. Take all medications as prescribed. Prescriptions: New methylprednisolone [Medrol (Bo)] 4 mg tablets,dose pack See Rx Instructions .ROUTE .COMPLEX Qty: 21 0RF Rx Instructions: for 6 days albuterol sulfate 90 mcg/actuation aerosol powdr breath activated 2 inh inhalation Q4-6H PRN (Reason: shortness of breath or wheezing) Qty: 1 0RF benzonatate 100 mg capsule 100 mg PO TID Qty: 14 0RF codeine-guaifenesin 10-100 mg/5 mL liquid 5 ml PO Q6H PRN (Reason: cough) Qty: 120 0RF doxycycline monohydrate 100 mg capsule 100 mg PO BID Qty: 14 0RF No Action prednisone 5 mg tablet 15 mg PO DAILY 14 Days Qty: 42 0RF sertraline [Zoloft] 50 mg Tablet 50 mg PO DAILY pseudoephedrine HCl [Sudafed] 30 mg tablet 30 mg PO Q4-6H PRN (Reason: nasal congestion) Qty: 20 0RF Rx Instructions: DNExceed 4 doses/24h pseudoephedrine HCl [Sudafed] 30 mg tablet 30 mg PO Q4-6H PRN (Reason: nasal congestion) Qty: 20 0RF Rx Instructions: DNExceed 4 doses/24h naproxen 375 mg tablet 375 mg PO BID Qty: 14 0RF Follow-up/Referrals: Daggett,Sue, FLAME ANNEALING MACHINE OPERATOR [Primary Care Provider] - Time of Disposition: 01:48
[2024-03-23] MEDS: IPRATROPIUM 0.5 MG/ALBUTEROL SULFATE 2.5 MG AMPUL.NEB 3 ML INHALATION (00:10)
[2024-03-23] MEDS: dexAMETHasone SOD PHOS INJ 10 MG/ML 1 ML VIAL IM (00:14)
[2024-03-23] MEDS: KETOROLAC (*BKC) 60 MG/2 ML VIAL IM (00:14)
[2024-03-23] MEDS: ACETAMINOPHEN 500 MG TABLET 1000 MG PO (00:24)
[2024-03-23 00:33] VITALS: BP 132/70; PULSE 92; RESP 12; TEMP 38.3; O2SAT 98
[2024-03-23] MEDS: DOXYCYCLINE HYCLATE 100 MG TABLET PO (02:34)
[2024-03-23 02:38] VITALS: TEMP 36.9
[2024-03-23 02:39] VITALS: BP 128/80; PULSE 85; RESP 15; O2SAT 99
== END 2024-03-23 02:40 | disposition home or self-care (01) ==
PROVIDERS: Emergency Medicine; Emergency Provider Registered Nurse; PCP Nurse Practitioner Family
DX: J18.9 Pneumonia, unspecified organism (principal); J06.9 Acute upper respiratory infection, unspecified; J40 Bronchitis, not specified as acute or chronic; Z20.822 Contact with and (suspected) exposure to COVID-19
CPT/HCPCS: 71045; 87637; 94640; 96372; 99284; A9270; J1100; J1885